=== PATIENT | male | born 1995 | race Caucasian/White ===

== ENCOUNTER 2020-04-18 12:44 | Outpatient (CLI) | payer OTHER ==
--- NOTE | 2020-04-18 14:29 | MRI Report ---
PROCEDURE: Knee LT W/O INDICATIONS: LT KNEE PAIN TECHNIQUE: Noncontrast sagittal PD fast spin echo and T2 fast spin echo with fat saturation, sagittal 3-D gradie nt sequence with fat saturation; coronal T1 spin echo and PD fast spin echo with fat saturation, and axial PD fast spin echo with fat saturation through the knee. COMPARISON: None. FINDINGS: Image quality: Excellent. Menisci: The medial and lateral menisci demonstrate normal morphology and internal signal. The meni scal root ligaments appear intact. Cruciate ligaments: The anterior and posterior cruciate ligaments appear intact. Medial structures: The medial collateral ligament appears intact. Visualized portions of the pes an serinus tendons appear normal. No abnormal bursal fluid. Lateral structures: The lateral collateral ligament, long and short heads of the biceps femoris tend on appear intact. The popliteus tendon appears intact. Iliotibial band appears normal. Anterior structures: There is a moderate grade partial thickness tear involving the central fibers o f the proximal patellar tendon. Less than 10% of the cross-sectional area of the tendon is involved. There is surrounding edema in Hoffa's fat pad and in the inferior pole of the patella. There is no pa tella silvio. The distal quadriceps tendon is intact. Bones and cartilage: The cartilage of the medial and lateral femorotibial compartments, as well as t he patellofemoral compartment, appears normal in thickness. Joint space: There is a small joint effusion. No medial popliteal cyst is seen. IMPRESSION: 1. Small focal moderate-grade partial-thickness tear involving the central fibers of the proximal pa tellar tendon, with less than 10% of the cross-sectional area of the tendon involved. Surrounding maira ma is seen in the inferior pole of the patella and in Hoffa's fat pad. 2. Intact cruciate and collateral ligaments. There is no meniscal tear. 3. Small joint effusion. Reviewed by: Dusty Madrid MD on 04/18/2020 2:28 PM PDT Approved by: Dusty Madrid MD on 04/18/2020 2:28 PM PDT Station ID: [id number]
== END 2020-04-18 12:45 | disposition home or self-care (01) ==
LOC: DI 12:44
DX: S86.802A Unspecified injury of other muscle(s) and tendon(s) at lower leg level, left leg, initial encounter (principal); M25.462 Effusion, left knee